=== PATIENT | female | born 1995 | race Asian ===

== ENCOUNTER 2017-06-25 10:07 | Emergency (ER) | payer BC ==
[2017-06-25 11:11] LABS: #Monocytes 0.5 thou/uL (0.11-0.59); #Neutrophils 8.6 thou/uL (1.40-6.50); %Basophils 0.2 % (0.0-1.0); %Eosinophils 0.1 % (0.0-10.0); %Lymphocytes 9.6 % (28.0-48.0); %Monocytes 4.7 % (0.0-4.0); %Neutrophils 85.4 % (31.0-61.0); Hemoglobin 15.2 g/dL (12.0-16.0); Mean Corpuscular Hemoglobin 29.2 pg (25.0-35.0); Mean Corpuscular Volume 85.9 fl (77.0-87.0); Platelet Count 226 thou/uL (130-400); RBC Distribution Width 11.5 % (11.5-14.5); Red Blood Cell (RBC) Count 5.22 mill/uL (4.00-5.20); White Blood Cell (WBC) Count 10.1 thou/uL (4.8-10.8)
[2017-06-25] MEDS ORDERED: Lidocaine Viscous Sol 2% 15 ml UD Cup ONE (11:22)
[2017-06-25] MEDS ORDERED: Mag-Al 1200 mg/1200 mg/30 ML UDCUP ONE (11:22)
[2017-06-25 11:34] LABS: ALT (SGPT) 45 U/L (8-55); AST (SGOT) 22 U/L (5-34); Albumin 4.3 g/dL (3.5-5.0); Alkaline Phosphatase 81 U/L (40-150); Anion Gap 14 mmol/L (10-20); BUN (Urea Nitrogen) 9 mg/dL (7.0-18.7); Bilirubin, Total 0.6 mg/dL (0.2-1.2); Calc. Creatinine Clearance 0 mL/min (70-130); Calcium 9.5 mg/dL (7.8-10.44); Carbon Dioxide 25 mmol/L (22-29); Chloride 100 mmol/L (98-107); Estimated GFR-MDRD Greater than 90; Globulin 3.6 g/dL (2.4-3.5); Glucose 120 mg/dL (70-105); Lipase 15 U/L (8-78); Potassium 3.4 mmol/L (3.5-5.1); Protein, Total 7.9 g/dL (6.0-8.3); Sodium 136 mmol/L (136-145)
[2017-06-25 12:02] LABS: Bilirubin Negative (Negative); Blood, Urine Negative (Negative); Clarity CLEAR (Clear); Glucose, Urine (Dipstick) Negative (Negative); Leukocyte Negative (Negative); Nitrite Negative (Negative); Protein, Urine (Dipstick) Negative (Neg-Trace); Specific Gravity, Urine 1.016 (1.002-1.036); pH, Urine 5.5 (5.0-9.0)
[2017-06-25 12:03] LABS: Pregnancy Test - Urine (BHCG) Negative (Negative); Pregu Control Background? CLEAR/WHITE (CLR/WHITE); Pregu Control Bar Appear? YES (CONTROL BAR); Specific Gravity 1.016 (1.002-1.036)
== END 2017-06-25 13:17 | disposition home or self-care (01) ==
LOC: ERS 10:07
DX: R10.13 Epigastric pain (principal); R11.2 Nausea with vomiting, unspecified; F41.9 Anxiety disorder, unspecified; F32.9 Major depressive disorder, single episode, unspecified
CPT/HCPCS: 80053; 81003; 81025; 83690; 85025; 99284

== ENCOUNTER 2020-04-06 11:09 | Emergency (ER) | payer BC ==
[2020-04-06] MEDS ORDERED: Rabies Immune Globulin 1500 UNITS/10 ML VIAL IM SCH (13:15)
[2020-04-06] MEDS ORDERED: Rabies Vaccine Human 2.5 UNITS VIAL IM ONE (13:30)
[2020-04-06] MEDS ORDERED: Boostrix 0.5 ML (Tdap) VIAL ONE ×2 (14:30→14:42)
== END 2020-04-06 15:45 | disposition home or self-care (01) ==
LOC: ERS 11:09
DX: S61.452A Open bite of left hand, initial encounter (principal); W55.01XA Bitten by cat, initial encounter
CPT/HCPCS: 90375; 90376; 90471; 90472; 90675; 90715; 96372

== ENCOUNTER 2020-04-09 16:15 | Emergency (ER) | payer BC ==
[2020-04-09] MEDS ORDERED: Rabies Vaccine Human 2.5 UNITS VIAL IM ONE (17:30)
== END 2020-04-09 19:55 | disposition home or self-care (01) ==
LOC: ER/OP 16:15
DX: Z23 Encounter for immunization (principal)
CPT/HCPCS: 90471; 90675

== ENCOUNTER 2020-04-13 17:04 | Emergency (ER) | payer BC ==
[2020-04-13] MEDS ORDERED: Rabies Vaccine Human 2.5 UNITS VIAL IM ONE (17:45)
== END 2020-04-13 18:05 | disposition home or self-care (01) ==
LOC: ER/OP 17:04
DX: Z23 Encounter for immunization (principal)
CPT/HCPCS: 90471; 90675

== ENCOUNTER 2020-04-20 23:15 | Day surgery (SDC) | payer BC ==
[2020-04-21] MEDS ORDERED: Rabies Vaccine Human 2.5 UNITS VIAL IM ONE (00:30)
== END 2020-04-21 00:30 | disposition home or self-care (01) ==
LOC: ERS 23:15 → ER/OP 23:15
DX: Z23 Encounter for immunization (principal)
CPT/HCPCS: 90471; 90675

== ENCOUNTER 2020-05-07 11:48 | Emergency (ER) | payer BC ==
[2020-05-07 18:30] LABS: SARS-CoV-2 PCR by NAA Not Detected (NotDetected)
== END 2020-05-07 12:10 | disposition home or self-care (01) ==
LOC: ERS 11:48
DX: J02.9 Acute pharyngitis, unspecified (principal); R53.83 Other fatigue; R06.02 Shortness of breath; Z20.822 Contact with and (suspected) exposure to COVID-19
CPT/HCPCS: 87635; 99283; U0003; U0005